=== PATIENT | female | born 1995 | race Caucasian/White ===

== ENCOUNTER 2018-11-30 00:01 | Emergency (ER) | payer BC ==
--- NOTE | 2018-11-30 00:19 | EDM.PDOC ---
ED HPI GENERAL MEDICAL PROBLEM - General Chief Complaint: Headache Stated Complaint: MIGRAINE Time Seen by Provider: 11/30/18 00:13 - History of Present Illness INITIAL COMMENTS - FREE TEXT/NARRATIVE: HISTORY AND PHYSICAL: History of present illness: Patient's 23-year-old white female no significant past medical surgical history presents with a concern of headache and generalized weakness been no fever chills nausea vomiting or other complaints she denies trauma and has no other complaints Review of systems: As per history of present illness and below otherwise all systems reviewed and negative. Past medical history: As per history of present illness and as reviewed below otherwise noncontributory. Surgical history: As per history of present illness and as reviewed below otherwise noncontributory. Social history: No reported history of drug or alcohol abuse. Family history: As per history of present illness and as reviewed below otherwise noncontributory. Physical exam: HEENT: Atraumatic, normocephalic, pupils reactive, negative for conjunctival pallor or scleral icterus, mucous membranes moist, throat clear, neck supple, nontender, trachea midline. Lungs: Clear to auscultation, breath sounds equal bilaterally, chest nontender. Heart: S1S2, regular, negative for clicks, rubs, or JVD. Abdomen: Soft, nondistended, nontender. Negative for masses or hepatosplenomegaly. Negative for costovertebral tenderness. Pelvis: Stable nontender. Genitourinary: Deferred. Rectal: Deferred. Extremities: Atraumatic, negative for cords or calf pain. Neurovascular unremarkable. Neuro: Awake, alert, oriented. Cranial nerves II through XII unremarkable. Cerebellum unremarkable. Motor and sensory unremarkable throughout. Exam nonfocal. Diagnostics: CBC CMP hCG CT brain Therapeutics: None Impression: #1 cephalgia #2 medical screening exam Definitive disposition and diagnosis as appropriate pending reevaluation and review of above. headache Pain Score (Numeric/FACES): 5 - Related Data Allergies Allergy/AdvReac Type Severity Reaction Status Date / Time No Known Allergies Allergy Verified 11/30/18 00:14 Home Meds: Home Meds . [No Known Home Meds] 11/30/18 [History] ED ROS GENERAL - Review of Systems Review Of Systems: ROS reveals no pertinent complaints other than HPI. ED EXAM, GENERAL - Physical Exam Exam: See Below (dictation) Course - Vital Signs Last Recorded V/S: Last Vital Signs Temp 36.3 C 11/30/18 00:14 Pulse 92 11/30/18 00:14 Resp 18 11/30/18 00:14 BP 123/81 11/30/18 00:14 Pulse Ox 97 11/30/18 00:14 Departure - Departure Time of Disposition: 00:18 Disposition: Home, Self-Care 01 Condition: Good Clinical Impression: Cephalgia, Encounter for medical screening examination - Discharge Information Referrals: PCP,None [Primary Care Provider] - Additional Instructions: The following information is given to patients seen in the emergency department who are being discharged to home. This information is to outline your options for follow-up care. We provide all patients seen in our emergency department with a follow-up referral. The need for follow-up, as well as the timing and circumstances, are variable depending upon the specifics of your emergency department visit. If you don't have a primary care physician on staff, we will provide you with a referral. We always advise you to contact your personal physician following an emergency department visit to inform them of the circumstance of the visit and for follow-up with them and/or the need for any referrals to a consulting specialist. The emergency department will also refer you to a specialist when appropriate. This referral assures that you have the opportunity for followup care with a specialist. All of these measure are taken in an effort to provide you with optimal care, which includes your followup. Under all circumstances we always encourage you to contact your private physician who remains a resource for coordinating your care. When calling for followup care, please make the office aware that this follow-up is from your recent emergency room visit. If for any reason you are refused follow-up, please contact the [facility] emergency department at and asked to speak to the emergency department charge nurse. Motrin/Tylenol as directed return as needed as discussed follow-up primary medical doctor as needed as discussed
[2018-11-30 00:54] LABS: CHLORIDE,CL 102 mmol/L (98-107); SODIUM,NA 141 mmol/L (136-145)
--- NOTE | 2018-11-30 01:43 | CR ---
INDICATION: Headache TECHNIQUE: Chest 1 view COMPARISON: None FINDINGS: Cardiovascular and mediastinum: Heart size and vasculature are normal in caliber and appearance. Lungs and pleural spaces: Lungs are clear. No sign of infiltrate or mass. No sign of pleural effusion. No pneumothorax. Bones and soft tissues: No significant findings. IMPRESSION: Unremarkable single view chest. Dictated by Wero Staley MD @ Nov 30 2018 1:40AM Signed by Dr. Wero Staley @ Nov 30 2018 1:41AM
--- NOTE | 2018-11-30 01:45 | CT ---
INDICATION: Headache TECHNIQUE: CT head without contrast. COMPARISON: None. FINDINGS: CSF spaces: Within normal limits for age. Brain parenchyma: The foote-white differentiation is normal. No sign of mass, hemorrhage, or midline shift. Skull base and calvarium: Mucosal thickening with mucous retention cyst in the left maxillary sinus. The visualized orbits are grossly unremarkable. No skull fractures. IMPRESSION: Unremarkable noncontrast head CT. Please note that all CT scans at this facility use dose modulation, iterative reconstruction, and/or weight-based dosing when appropriate to reduce radiation dose to as low as reasonably achievable. Dictated by Wero Staley MD @ Nov 30 2018 1:40AM Signed by Dr. Wero Staley @ Nov 30 2018 1:43AM
== END 2018-11-30 02:20 | disposition home or self-care (01) ==
LOC: MW.ED 00:01
DX: R51 Headache (principal)
CPT/HCPCS: 36415; 70450; 70450-26; 71045; 71045-26; 80053; 81001; 84703; 85025; 87081; 87880-QW; 99284-25

== ENCOUNTER 2018-12-02 23:29 | Emergency (ER) | payer OTHER, BC ==
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
--- NOTE | 2018-12-03 01:06 | CR ---
Indication: Shoulder pain Technique: Right shoulder 3 views Comparison: None Findings: Bones: Alignment is normal. No fractures or bone lesions. Joint spaces: The glenohumeral and AC joints and the subacromial space are preserved. No significant degenerative changes. Soft tissues: Unremarkable. Impression: Unremarkable shoulder. No findings to explain pain. Dictated by Shawn Au MD @ Dec 03 2018 1:04AM Signed by Dr. Shawn Au @ Dec 03 2018 1:05AM
== END 2018-12-03 01:35 | disposition home or self-care (01) ==
LOC: MW.ED 23:29
DX: S49.91XA Unspecified injury of right shoulder and upper arm, initial encounter (principal); X50.9XXA Other and unspecified overexertion or strenuous movements or postures, initial encounter; Y99.0 Civilian activity done for income or pay
CPT/HCPCS: 73030-26-RT; 73030-RT; 81025; 99284-25